=== PATIENT | female | born 1995 | race Caucasian/White ===

== ENCOUNTER 2021-06-05 12:25 | Emergency (ER) | payer OTHER ==
[~2021-06-05] VITALS: Ht 170.2 cm; Wt 95.5 kg
[2021-06-05] MEDS ORDERED: OMEG-135 PO (12:30)
[2021-06-05] MEDS ORDERED: MULT-415 PO (12:31)
[2021-06-05] MEDS ORDERED: LIDOCAINE 1% 10 ML VIAL ID ONE (13:30)
[2021-06-05 13:50] VITALS: BP 125/54
== END 2021-06-05 14:12 | disposition home or self-care (01) ==
LOC: EMS 12:25
DX: S60.551A Superficial foreign body of right hand, initial encounter (principal); L08.9 Local infection of the skin and subcutaneous tissue, unspecified; Z88.1 Allergy status to other antibiotic agents; W45.8XXA Other foreign body or object entering through skin, initial encounter; Y93.89 Activity, other specified; Y92.89 Other specified places as the place of occurrence of the external cause; Y99.8 Other external cause status
CPT/HCPCS: 10120; 99285; J3490

== ENCOUNTER 2021-07-19 16:14 | Emergency (ER) | payer OTHER ==
[~2021-07-19] VITALS: Ht 170.2 cm; Wt 100.0 kg
[~2021-07-19 16:14] MED LIST: MULT-415 PO; OMEG-135 PO
[2021-07-19] MEDS ORDERED: POVIDONE-IODINE 10% 15 ML SOLUTION UD TP ONE (17:15)
[2021-07-19] MEDS ORDERED: LIDOCAINE 1% 10 ML VIAL PERC ONE (17:15)
[2021-07-19] MEDS ORDERED: BACITRACIN 0.9 GM PACKET OINTMENT TP ONE (18:00)
[2021-07-19 18:16] VITALS: BP 124/63
== END 2021-07-19 18:18 | disposition home or self-care (01) ==
LOC: EMS 16:27
DX: S60.551A Superficial foreign body of right hand, initial encounter (principal); W45.8XXA Other foreign body or object entering through skin, initial encounter; Y93.89 Activity, other specified; Y92.89 Other specified places as the place of occurrence of the external cause; Y99.8 Other external cause status
CPT/HCPCS: 10120; 99285; J3490

== ENCOUNTER 2024-11-08 13:35 | Emergency (ER) | payer OTHER ==
[~2024-11-08] VITALS: Ht 157.5 cm; Wt 100.0 kg
[2024-11-08 13:48] VITALS: TEMP 98
[2024-11-08] MEDS ORDERED: CHOL200059 PO (13:55)
[2024-11-08] MEDS ORDERED: ASPI-1450 PO (13:55)
[2024-11-08] MEDS ORDERED: PREN-217 PO (13:55)
[2024-11-08 14:50] LABS: BASOPHILS % (AUTO) 0.2 % (0.0-2.0); EOSINOPHILS % (AUTO) 1.2 % (1.0-6.0); HEMATOCRIT 37.6 % (36-46); HEMOGLOBIN 12.5 g/dL (12.0-16.0); LYMPHOCYTES # (AUTO) 2.3 K/uL (1.0-4.8); MEAN CORPUSCULAR HEMOGLOBIN 27.4 pg (26.0-34.0); MEAN CORPUSCULAR HGB CONC 33.2 G/dL (31.0-37.0); MEAN CORPUSCULAR VOLUME 83 fL (80-100); MONOCYTES # (AUTO) 0.7 K/uL (0.1-1.0); MONOCYTES % (AUTO) 6.5 % (2.0-9.0); NEUTROPHILS # (AUTO) 7.2 K/uL (1.8-7.7); NEUTROPHILS % (AUTO) 70.1 % (40.0-70.0); PLATELET COUNT (AUTO) 278 K/uL (150-450); RED BLOOD CELL COUNT(AUTO) 4.55 MIL/uL (4.00-5.20); RED CELL DISTRIBUTION WIDTH 14.4 % (11.5-14.5); WHITE BLOOD COUNT (AUTO) 10.3 K/uL (4.5-11.0)
[2024-11-08 15:00] LABS: ANION GAP 10 mmol/L (8-16); CALCIUM, TOTAL 8.8 mg/dL (8.8-10.5); CARBON DIOXIDE 25 mmol/L (22-29); CHLORIDE 102 mmol/L (98-107); CREATININE 0.56 mg/dL (0.60-1.30); GLOMERULAR FILTR. RATE CALC > 60 mL/min (>60); GLUCOSE,RANDOM 78 mg/dL (70-110); POTASSIUM 3.7 mmol/L (3.5-5.1); SODIUM SERUM 137 mmol/L (136-145); UREA NITROGEN, BLOOD 4 mg/dL (7-18)
[2024-11-08 15:15] VITALS: BP 121/84; PULSE 79; RESP 17; O2SAT 98
== END 2024-11-08 16:33 | disposition home or self-care (01) ==
LOC: EMS 13:35
DX: O46.92 Antepartum hemorrhage, unspecified, second trimester (principal); Z88.2 Allergy status to sulfonamides; Z79.82 Long term (current) use of aspirin; Z3A.14 14 weeks gestation of pregnancy
CPT/HCPCS: 76801; 80048; 85025; 86901; 99284